=== PATIENT | male | born 1990 | race African-American/Black ===

== ENCOUNTER 2019-08-26 09:05 | Emergency (ER) | payer SELFPAY ==
[~2019-08-26] VITALS: Ht 180.3 cm; Wt 70.0 kg
[2019-08-26 09:38] LABS: HEMATOCRIT 45.5 % (39.0-50.0); HEMOGLOBIN 14.9 g/dl (14.0-18.0); IMMATURE GRANULOCYTES 0.4 % (0.0-5.0); MEAN CELL VOLUME 81.7 fL CALC (80.0-100.0); MEAN CORPUSCULAR HGB 26.8 pG CALC (26.0-32.0); MEAN CORPUSCULAR HGB CONC 32.7 g/L CALC (32.0-36.0); NEUT# 5.56 thou/uL (1.82-7.42); RED BLOOD COUNT 5.57 mill/uL (4.70-6.10); RED CELL DISTRI WIDTH 13.4 % (11.5-15.5)
[2019-08-26 09:41] LABS: ALBUMIN 4.6 g/dL (3.2-5.0); ALKALINE PHOSPHATASE 46 u/l (38-126); ANION GAP 14 (6-22 (CALC)); BILIRUBIN, TOTAL 3.2 mg/dL (0.0-1.4); BUN 13 mg/dL (9-20); BUN/CREATININE RATIO 19 (12-20 (CALC)); CARBON DIOXIDE 25 mmol/l (22-30); CHLORIDE 101 mmol/l (95-108); CREATININE 0.7 mg/dL (0.7-1.3); GFR > 60 ML/MIN (>=60 (CALC)); GFR FOR AFR.AMER. > 60 ML/MIN (>=60 (CALC)); LIPASE 27 u/l (23-300); POTASSIUM 3.8 mmol/l (3.5-5.1); SGOT/AST 24 u/l (17-59); SODIUM 137 mmol/l (137-146); TOTAL PROTEIN 8.2 g/dL (6.3-8.2)
[2019-08-26] MEDS ORDERED: MIRALAX3350 N1 PO (10:33)
[2019-08-26 10:54] LABS: URINE BILIRUBIN - DIPSTICK NEGATIVE (NEGATIVE); URINE BLOOD DIPSTICK NEGATIVE (NEGATIVE); URINE COLOR YELLOW; URINE GLUCOSE - DIPSTICK NEGATIVE (NEGATIVE); URINE KETONE NEGATIVE (NEGATIVE); URINE LEUK ESTERASE NEGATIVE (NEGATIVE); URINE NITRITE - DIPSTICK NEGATIVE (Negative); URINE PROTEIN - DIPSTICK NEGATIVE (NEG-TRACE); URINE SPECIFIC GRAVITY >=1.030
[2019-08-26] MEDS ORDERED: RANITIDINE150 M1 PO (11:03)
[2019-08-26 11:10] VITALS: BP 133/74
== END 2019-08-26 11:10 | disposition home or self-care (01) | DRG 392 ==
LOC: ED 09:05
PROVIDERS: Family Medicine
DX: R10.13 Epigastric pain (principal); K59.00 Constipation, unspecified

== ENCOUNTER 2020-11-21 12:08 | Emergency (ER) | payer SELFPAY ==
[~2020-11-21] VITALS: Ht 180.3 cm; Wt 45.0 kg
[~2020-11-21 12:08] MED LIST: MIRALAX3350 N1 PO; RANITIDINE150 M1 PO
[2020-11-21 14:04] VITALS: BP 111/72
== END 2020-11-21 14:04 | disposition home or self-care (01) | DRG 605 ==
LOC: ED 12:08
DX: S60.221A Contusion of right hand, initial encounter (principal); F17.200 Nicotine dependence, unspecified, uncomplicated; W22.09XA Striking against other stationary object, initial encounter; Y93.89 Activity, other specified; Y92.009 Unspecified place in unspecified non-institutional (private) residence as the place of occurrence of the external cause

== ENCOUNTER 2021-02-02 | Emergency (ER) | payer SELFPAY ==
[2021-02-02] MEDS ORDERED: BACTRIM DS1 TAB PO (11:24)
== END 2021-02-02 12:10 | disposition home or self-care (01) | DRG 603 ==
PROC: 0H9EXZZ Drainage of Left Lower Arm Skin, External Approach (ICD-10-PCS; principal; 2021-02-02)
DX: L02.414 Cutaneous abscess of left upper limb (principal); L03.114 Cellulitis of left upper limb; F17.200 Nicotine dependence, unspecified, uncomplicated

== ENCOUNTER 2021-02-04 09:22 | Emergency (ER) | payer SELFPAY ==
[~2021-02-04 09:22] MED LIST changes: +BACTRIM DS1 TAB PO
[2021-02-04 11:09] LABS: HEMATOCRIT 41.2 % (39.0-50.0); IMMATURE GRANULOCYTES 0.3 % (0.0-5.0); MEAN CELL VOLUME 85.5 fL CALC (80.0-100.0); MEAN CORPUSCULAR HGB 26.8 pG CALC (26.0-32.0); MEAN CORPUSCULAR HGB CONC 31.3 g/dL CAL (32.0-36.0); NEUT# 7.39 thou/uL (1.82-7.42); RED BLOOD COUNT 4.82 mill/uL (4.70-6.10); RED CELL DISTRI WIDTH 13.6 % (11.5-15.5)
[2021-02-04 11:15] LABS: HEMOGLOBIN 12.9 g/dl (14.0-18.0)
[2021-02-04 11:26] LABS: ALBUMIN 4.2 g/dL (3.2-5.0); ALKALINE PHOSPHATASE 58 u/l (38-126); ANION GAP 11 (6-22 (CALC)); BUN 7 mg/dL (9-20); BUN/CREATININE RATIO 12 (12-20 (CALC)); CARBON DIOXIDE 25 mmol/l (22-30); CHLORIDE 105 mmol/l (95-108); CREATININE 0.6 mg/dL (0.7-1.3); GFR > 60 ML/MIN (>=60 (CALC)); GFR FOR AFR.AMER. > 60 ML/MIN (>=60 (CALC)); POTASSIUM 4.5 mmol/l (3.5-5.1); SGOT/AST 27 u/l (17-59); SODIUM 137 mmol/l (137-146); TOTAL PROTEIN 7.6 g/dL (6.3-8.2)
[2021-02-04 11:27] LABS: BILIRUBIN, TOTAL 0.7 mg/dL (0.0-1.4)
[2021-02-04 14:26] VITALS: BP 138/75
== END 2021-02-04 14:29 | DRG 603 ==
LOC: ED 09:22
PROVIDERS: Family Medicine
PROC: 0H9EXZZ Drainage of Left Lower Arm Skin, External Approach (ICD-10-PCS; principal; 2021-02-04)
DX: L02.414 Cutaneous abscess of left upper limb (principal); L03.114 Cellulitis of left upper limb; B95.62 Methicillin resistant Staphylococcus aureus infection as the cause of diseases classified elsewhere

== ENCOUNTER 2021-04-10 10:46 | Emergency (ER) | payer SELFPAY ==
[~2021-04-10] VITALS: Ht 180.3 cm; Wt 61.0 kg
[2021-04-10] MEDS ORDERED: MOTRIN800 MG PO (11:22)
[2021-04-10 11:45] VITALS: BP 114/75
== END 2021-04-10 11:45 | disposition home or self-care (01) | DRG 948 ==
LOC: ED 10:46
DX: G89.18 Other acute postprocedural pain (principal); S63.601A Unspecified sprain of right thumb, initial encounter; X58.XXXA Exposure to other specified factors, initial encounter; Z86.14 Personal history of Methicillin resistant Staphylococcus aureus infection

== ENCOUNTER 2022-05-02 17:06 | Emergency (ER) | payer SELFPAY ==
[~2022-05-02] VITALS: Ht 172.7 cm; Wt 70.0 kg
[~2022-05-02 17:06] MED LIST changes: +MOTRIN800 MG PO
[2022-05-02] MEDS ORDERED: KEFLEX500 MG PO (17:51)
[2022-05-02 18:32] VITALS: BP 128/84
== END 2022-05-02 18:32 | disposition home or self-care (01) | DRG 605 ==
LOC: ED 17:06
DX: S91.332A Puncture wound without foreign body, left foot, initial encounter (principal); W45.0XXA Nail entering through skin, initial encounter; Y93.89 Activity, other specified; Y92.89 Other specified places as the place of occurrence of the external cause; Y99.0 Civilian activity done for income or pay